=== PATIENT | male | born 1950 | race Two or more races ===

== ENCOUNTER 2020-07-11 13:13 | Outpatient (CLI) | payer OTHER | END 2020-07-11 14:00 | disposition home or self-care (01) | LOC: OFIC 805 13:13 | PROVIDERS: ATTEND Otolaryngology | DX: H69.93 Unspecified Eustachian tube disorder, bilateral (principal); H90.3 Sensorineural hearing loss, bilateral; Z96.22 Myringotomy tube(s) status ==

== ENCOUNTER 2021-01-13 09:01 | Outpatient (CLI) | payer OTHER | END 2021-01-13 15:11 | disposition home or self-care (01) | LOC: OFIC 805 09:01 | PROVIDERS: ATTEND Otolaryngology | DX: H90.3 Sensorineural hearing loss, bilateral (principal); H66.93 Otitis media, unspecified, bilateral; H69.83 Other specified disorders of Eustachian tube, bilateral ==

== ENCOUNTER 2021-01-27 08:53 | Outpatient (CLI) | payer OTHER | END 2021-01-27 16:33 | disposition home or self-care (01) | LOC: OFIC 805 08:53 | PROVIDERS: ATTEND Otolaryngology | DX: H90.3 Sensorineural hearing loss, bilateral (principal); H69.83 Other specified disorders of Eustachian tube, bilateral; H66.93 Otitis media, unspecified, bilateral; Z96.22 Myringotomy tube(s) status ==